=== PATIENT | male | born 1995 | race Caucasian/White ===

== ENCOUNTER 2021-10-27 18:17 | Emergency (ER) | payer SELFPAY ==
[~2021-10-27] VITALS: Ht 182.9 cm; Wt 79.8 kg
--- NOTE | 2021-10-27 18:17 | NUR ---
PT [address] C/O CHRONIC BACK PAIN. PT IS AAOX4, NOT IN RESPIRATORY DISTRESS, V/S STABLE, KEPT RESTED AND COMFORTABLE. WILL CONTINUE TO MONITOR.
[2021-10-27] MEDS ORDERED: KETOROLAC TROMETHAMINE INJ 60 MG/2 ML VIAL IM ONE ×2 (18:57→19:00)
[2021-10-27] MEDS ORDERED: NAPR-1009 PO (19:23)
--- NOTE | 2021-10-27 19:35 | NUR ---
Patient discharged to home in stable condition. Written and verbal after care instructions given. Patient verbalizes understanding of instruction.
[2021-10-27 19:44] VITALS: BP 127/74
== END 2021-10-27 19:45 | disposition home or self-care (01) ==
LOC: ER 18:19
DX: M54.50 Low back pain, unspecified (principal); G89.29 Other chronic pain; F17.210 Nicotine dependence, cigarettes, uncomplicated; Z60.2 Problems related to living alone; Z79.899 Other long term (current) drug therapy
CPT/HCPCS: 96372; 99283; 99406; J1885